=== PATIENT | male | born 1980 | race Caucasian/White ===

== ENCOUNTER 2020-06-19 12:02 | Day surgery (SDC) | payer BC ==
[2020-06-13 11:32] LABS: BASOPHILS # (AUTO) 0.1 X10'3 (0-0.2); BASOPHILS % (AUTO) 0.7 % (0-1); EOSINOPHILS # (AUTO) 0.7 X10'3 (0-0.9); EOSINOPHILS % (AUTO) 7.9 % (0-6); LYMPHOCYTES # (AUTO) 1.4 X10'3 (1.1-4.8); LYMPHOCYTES % (AUTO) 15.9 % (21-51); MEAN CORPUSCULAR HEMOGLOBIN 30.6 PG (27.0-31.0); MEAN CORPUSCULAR HGB CONC 34.6 g/dL (33.0-36.5); MEAN CORPUSCULAR VOLUME 88.5 FL (78-98); MEAN PLATELET VOLUME 6.8 FL (7.4-10.4); MONOCYTES # (AUTO) 1.1 X10'3 (0-0.9); MONOCYTES % (AUTO) 12.5 % (2-12); NEUTROPHILS # (AUTO) 5.7 X10'3 (1.8-7.7); PRE OP HEMATOCRIT 46.3 % (42.0-52.0); PRE OP PLATELET COUNT 306 X10'3 (140-440); RED BLOOD COUNT 5.24 X10'6 (4.70-6.10); RED CELL DISTRIBUTION WIDTH 12.2 % (11.5-14.5)
[2020-06-13 11:53] LABS: ALBUMIN 4.3 G/DL (3.4-5.0); ALBUMIN/GLOBULIN RATIO 1.2 (1.1-1.5); ALKALINE PHOSPHATASE 103 IU/L (46-116); BLOOD UREA NITROGEN 20 MG/DL (7-18); BUN/CREATININE RATIO 21.5 (5.4-32.0); CALCIUM 9.3 MG/DL (8.5-10.1); CHLORIDE 103 MMOL/L (99-107); CREATININE 0.93 MG/DL (0.60-1.10); PRE OP ALT 38 U/L (30-65); PRE OP ANION GAP 7 (8-16); PRE OP AST 23 U/L (10-37); PRE OP BILIRUB, TOTAL 0.8 MG/DL (0.0-1.0); PRE OP GLUCOSE 109 MG/DL (70-104); PRE OP POTASSIUM 3.9 MMOL/L (3.4-5.1); PRE OP SODIUM 139 MMOL/L (135-145); TOTAL CARBON DIOXIDE 29.5 MMOL/L (24-32); eGFR 90 ML/MIN
[~2020-06-19] VITALS: Ht 172.7 cm; Wt 76.9 kg
[2020-06-19] VITALS (13 sets, daily range): BP systolic 112–130; BP diastolic 55–83
[~2020-06-19 12:02] MED LIST: NO HOME MEDS; ceFAZolin 2gm in dextrose, iso 50 ML IV ONE; famotidine 20mg tablet PO ONE; ringers solution, lacted 1,000 ML IV SCH
[2020-06-19] MEDS ORDERED: LIDOcaine 1% 30ml preserv. free vial ONE (14:56)
[2020-06-19] MEDS ORDERED: BUPIVAcaine/PF 2.5 mg/ml (0.25%) 30ml vial ONE (14:56)
[2020-06-19] MEDS ORDERED: fentaNYL/PF 50MCG/1 ML 2ML syringe ONE (15:16)
[2020-06-19] MEDS ORDERED: midazolam 2 mg/2 ml injection ONE (15:16)
[2020-06-19] MEDS ORDERED: propofol inj 20 ML IV ONE (16:20)
[2020-06-19] MEDS ORDERED: glycopyrrolate 0.2mg/ml inj ONE (16:20)
[2020-06-19] MEDS ORDERED: LIDOcaine 2% (20mg/ml) 5ml vial ONE (16:20)
[2020-06-19] MEDS ORDERED: neostigmine methylsulfate 1 MG/ML 10ml vial ONE (16:20)
[2020-06-19] MEDS ORDERED: dexamethasone sod phosphate 4mg/ml inj. ONE (16:20)
[2020-06-19] MEDS ORDERED: rocuronium 10mg/ml inj IV ONE (16:20)
[2020-06-19] MEDS ORDERED: ondansetron/PF 4mg/2ml inj ONE (16:20)
[2020-06-19] MEDS ORDERED: acetaminophen 1,000mg/100ml IV 100 ML IV ONE (16:23)
--- NOTE | 2020-06-19 16:33 | NUR ---
Received from OR via JYOTI , accompanied by Anesthesiologist MARYANNE and report given by Anesthesiolgist. PATIENT WITH 20G PIV IN LEFT UE RUNNING LR AT 100. PATIENT WITH 3 ABDOMINAL BANDAIDS PRESENT THAT ARE ALL CDI. 10L MASK ON WITH 100% SATURATIONS. Addendum: 06/19/20 at 1655 by Juaquin Isaac RN, RN Amended: Links added.
[2020-06-19] MEDS ORDERED: HYDROcodone/acetaminophen 10/325mg tab PO ONE (16:40)
[2020-06-19] MEDS ORDERED: HYDROcodone/acetaminophen 5mg/325mg tablet PO PRN (16:40)
[2020-06-19] MEDS ORDERED: morphine 2 MG/ML inj. syringe IV PRN (16:45)
[2020-06-19] MEDS ORDERED: ringers solution, lacted 1,000 ML IV SCH (16:45)
[2020-06-19] MEDS ORDERED: proCHLORperazine 10 MG/2 ml inj IV PRN (16:45)
[2020-06-19] MEDS ORDERED: meperidine/PF 25mg/ml syringe IV PRN ×2 (16:45)
[2020-06-19] MEDS ORDERED: ondansetron/PF 4mg/2ml inj IV PRN (16:45)
[2020-06-19] MEDS ORDERED: morphine 4 MG/ML inj SYRINge IV PRN (16:45)
[2020-06-19] MEDS: meperidine/PF 25mg/ml syringe IV PRN ×2 (17:15→17:24)
--- NOTE | 2020-06-19 21:03 | NUR ---
PATIENT VERBALIZED UNDERSTANDING, OPPORTUNITY TO ASK QUESTIONS GIVEN AND PATIENT COMFORTABLE WITH DC. IV TAKEN OUT WITHOUT COMPLICATION. PATIENT HAS MET ALL DC CRITERIA FOR DC HOME. I HAVE REVIEWED D/C INSTRUCTIONS WITH PATIENT. TAKEN OUT VIA WHEELCHAIR WHERE PATIENT WAS TAKEN HOME WITH ALL BELONGINGS. FAMILY GAVE PATIENT TRANSPORT HOME. AMBULATED AND VOIDED. PRE VOID OF 148 CC. VOIDED WITH GOOD STREAM AND AMOUNT. DC'D HOME Addendum: 06/19/20 at 2109 by Juaquin Parmar - LANEY DAVISON Amended: Links added.
== END 2020-06-19 21:03 | disposition home or self-care (01) ==
LOC: PAS 12:02
PROVIDERS: ATTEND Surgery
DX: K40.90 Unilateral inguinal hernia, without obstruction or gangrene, not specified as recurrent (principal); K42.0 Umbilical hernia with obstruction, without gangrene; F12.90 Cannabis use, unspecified, uncomplicated; Z79.899 Other long term (current) drug therapy; F17.210 Nicotine dependence, cigarettes, uncomplicated; Z91.013 Allergy to seafood; Z72.89 Other problems related to lifestyle; Z20.822 Contact with and (suspected) exposure to COVID-19; Z80.9 Family history of malignant neoplasm, unspecified
CPT/HCPCS: 36415; 49587; 49650; 80053; 82948; 85025; 87635; C1781; J0131; J1100; J2001; J2175; J2250; J2405; J2704; J2710; J3010; J3490; S2900; A4215; A4618; J7120